=== PATIENT | female | born 1950 | race Caucasian/White ===

== ENCOUNTER 2016-09-22 21:10 | Emergency (ER) | payer MEDICARE ==
[2016-09-22] MEDS ORDERED: ONDANSETRON HCL 4 MG/2 ML VIAL ONE (21:33)
[2016-09-22] MEDS ORDERED: HALOPERIDOL 5 MG/ML VIAL ONE (21:35)
[2016-09-22] MEDS ORDERED: LORazepam 2 MG/ML INJ ONE (21:36)
--- NOTE | 2016-09-22 22:10 | ER PHYSICIAN DOCUMENTATION ---
Physician Documentation [facility] Name:Coco Banuelos Age:66 yrs Sex:Female :1950 Arrival Date:09/22/2016 Time:21:10 BedTrauma-C Private MD:Jason Smith ED, Tom Disposition: 09/22 21:53 Chart complete. tl1 Disposition: 09/22/16 21:52 Transfer ordered to [facility]. Diagnosis is Dizziness - Vertigo. - Reason for transfer: Higher level of care. - Accepting physician is ILA DEGROOT. - Condition is Fair. - Problem is new. - Symptoms are unchanged. COBRA Form completed? Yes Transfer - Mode of Transportation Ambulance HPI: 21:34 This 66 yrs old Female presents to ER via Wheelchair with complaints of tl1 Dizziness/SPINNING. 21:34 The patient presents with sense of spinning, vertigo. Onset: The symptom(s)/episode tl1 began/occurred suddenly, just prior to arrival, 60 minute(s) ago. The patient has not recently seen a physician. 21:34 Earlier today, she had 2 brief episodes, several hours apart, of the abrupt onset of tl1 spinning and nausea. About 30 minutes ago she developed the abrupt onset of severe spinning, nausea and vomiting, worse with any movement. She denies h/a, speech problems, diplopia, fever. She denies focal weakness, gait problems.. Historical: - Allergies: No known drug Allergies; - Home Meds: 1. None - PMHx: None; - PSHx: Hysterectomy; - Tetanus: < 10 years. - Ebola Screening: : No symptoms or risks identified at this time. . - Immunization history: Pneumococcal vaccine status is unknown. - Social history: Smoking status: Patient states was never smoker of tobacco. ROS: 21:35 Neuro: Positive for dizziness, Negative for altered mental status, headache, hearing tl1 loss, loss of consciousness, seizure activity, speech changes, syncope, near syncope, visual changes, weakness. 21:35 All other systems are negative. Exam: 21:36 Constitutional: The patient appears alert, awake, well developed, well hydrated, well tl1 groomed, well nourished, in obvious distress, uncomfortable. 21:36 Head/face: Exam is negative for acute changes. 21:36 Eyes: Pupils: equal, round, and reactive to light and accomodation, Extraocular movements: gaze deviation towards the , Nystagmus: nystagmus with fast component noted, bilaterally. 21:36 ENT: External ear(s): are unremarkable, Mouth: is normal. tl1 21:36 Neck: ROM/movement: is normal, is supple. 21:36 Cardiovascular: Rate: normal, Rhythm: regular, Heart sounds: normal, Edema: is not appreciated, JVD: is not appreciated. 21:36 Respiratory: Respirations: normal, Breath sounds: are normal. 21:36 Abdomen/GI: Palpation: abdomen is soft and non-tender. 21:36 Neuro: Orientation: is normal, Mentation: is normal, Memory: is normal, Cranial nerves: CN I not tested, normal except Bilateral nystagmus. She cannot look much past the midline to the left or right. She has what appears to be rotatory nystagmus when she looks straight ahead., no gross hearing deficit,. 21:36 Neuro: Cerebellar function: normal finger to nose testing. tl1 Vital Signs: 21:11 BP 147 / 78 (auto/); lpr 21:11 Pulse 69 MON; Resp 14; Pulse Ox 94% ; lpr 21:14 BP 147 / 78; Pulse 76; Resp 18; Temp 97.4; Pulse Ox 95% on R/A; Weight 61.23 kg; Height em1 5 ft. 4 in. (162.56 cm); Pain 0/10; 22:06 BP 135 / 68; Pulse 64 MON; Resp 17; Pulse Ox 91% ; lpr 21:14 Body Mass Index 23.17 (61.23 kg, 162.56 cm) em1 MDM: 21:34 Patient medically screened. tl1 21:53 Differential diagnosis: CVA, TIA, vertigo. Data reviewed: vital signs, nurses notes, tl1 and as a result, I will *Transfer Patient. Counseling: I had a detailed discussion with the patient and/or guardian regarding: the historical points, exam findings, and any diagnostic results supporting the discharge/admit diagnosis, the need to transfer to another facility. Medication response: The patient's symptoms have improved, HALDOL AND ATIVAN. Response to treatment: the patient's symptoms have mildly improved after treatment, and as a result, I will TRANSFER. Special discussion: I AM WORRIED ABOUT A BRAINSTEM STROKE AND SHE NEEDS AN MRI KIP. WE CANNOT GET ONE HERE AND SHE NEEDS TO GO TO [facility]. Dispensed Medications: : Drug: Haldol 2.5 mg; Route: IVP; Site: left antecubital; lpr 22:01 Follow up: Response: vomiting subsided lpr : Drug: Ativan 1 mg; Route: IVP; Site: left antecubital; lpr 22:02 Follow up: dizziness subsided. Patient sleeping lpr Signatures: Brandie Almonte RN RN lpr Sanket Strauss MD MD tl1
--- NOTE | 2016-09-22 22:10 | ER NURSING DOCUMENTATION ---
Nurse's Notes [facility] Name:Coco Banuelos Age:66 yrs Sex:Female :1950 Arrival Date:09/22/2016 Time:21:10 BedTrauma-C Private MD:Jason Smith Diagnosis:Dizziness - Vertigo Presentation: 09/22 21:12 Acuity: NILDA 2 rh 21:14 Presenting complaint: Patient states: two bouts of dizziness earlier today that lpr resolved immediately. Dizzy spell after dinner tonight with vomiting. Dizziness now lessened. NO HEADACHE. NO PAIN. No chest pain or SOB. Transition of care: patient was not received from another setting of care. Notified ED Physician of patient's arrival and CC Dr. Strauss notified. 21:14 Method Of Arrival: Wheelchair lpr Triage Assessment: 22:04 General: Appears uncomfortable, Behavior is cooperative. lpr Historical: - Allergies: No known drug Allergies; - Home Meds: 1. None - PMHx: None; - PSHx: Hysterectomy; - Tetanus: < 10 years. - Ebola Screening: : No symptoms or risks identified at this time. . - Immunization history: Pneumococcal vaccine status is unknown. - Social history: Smoking status: Patient states was never smoker of tobacco. Screenin:27 Infectious Disease Risk None. Abuse screen: Denies threats or abuse. Nutritional lpr screening: No deficits noted. Assessment: 21:14 Neuro: Level of Consciousness is awake, alert, obeys commands, Oriented to person, lpr place, time, event, Bonding Supervisor are equal bilaterally Moves all extremities. Speech is normal, Facial symmetry appears normal, Pupils are PERRLA, Reports dizziness, photophobia Denies headache diplopia. 21:18 See Triage Assessment done by same RN. Pain: Denies pain. lpr 21:22 GI: Pt is actively vomiting bile. rh Vital Signs: 21:11 BP 147 / 78 (auto/); lpr 21:11 Pulse 69 MON; Resp 14; Pulse Ox 94% ; lpr 21:14 BP 147 / 78; Pulse 76; Resp 18; Temp 97.4; Pulse Ox 95% on R/A; Weight 61.23 kg; Height em1 5 ft. 4 in. (162.56 cm); Pain 0/10; 22:06 BP 135 / 68; Pulse 64 MON; Resp 17; Pulse Ox 91% ; lpr 21:14 Body Mass Index 23.17 (61.23 kg, 162.56 cm) em1 ED Course: 21:11 Patient arrived in ED. ma1 21:11 Jason Smith MD is Private Physician. ma1 21:12 Triage completed. rh 21:17 Inserted saline lock: 20 gauge in left antecubital area and blood collected. Lee, EMT.lpr 21:[address] Strauss notified and at bedside. lpr 21:28 Valuables Remains with patient Patient has correct armband on for positive lpr identification. Placed in gown. Bed in low position. Call light in reach. Side rails up X2. bus driver/monitor on. Pulse ox on. NIBP on. 21:34 Sanket Strauss MD is Attending Physician. tl1 22:03 Appears to be sleeping. lpr Administered Medications: 21:28 Drug: Haldol 2.5 mg; Route: IVP; Site: left antecubital; lpr 22:01 Follow up: Response: vomiting subsided lpr 21:28 Drug: Ativan 1 mg; Route: IVP; Site: left antecubital; lpr 22:02 Follow up: dizziness subsided. Patient sleeping lpr Intake: Outcome: 21:52 ER care complete, transfer ordered by . tl1 22:03 Transferred: Patient will be transferred to: [facility]. lpr 22:03 Transferred: Facility Acceptance Time: September 22, 2016 at 22:03 Patient's face sheet was faxed to accepting facility. Face Sheet included patient's name, address, age, gender, contact information and insurance information. Patient will be transported by: [facility] ground. Nurse and Physician Charting and Notes were sent to Accepting Facility. All tests and/or procedures with results, if applicable, were sent to accepting facility. 22:03 Condition: stable 22:03 Discharge instructions given to patient, significant other, Instructed on need for transfer Demonstrated understanding of 22:10 Patient left the ED. lpr 22:30 Report given to Cynthia Ratliff RN lpr Signatures: Brandie Almonte RN RN lpr Meinking-tech, Flory-tech em1 Sanket Strauss MD MD tl1 Amira Villegas Angeles Roland ma
== END 2016-09-22 22:10 | disposition short-term general hospital (02) ==
LOC: ER 21:10
DX: R42 Dizziness and giddiness (principal); H55.00 Unspecified nystagmus; R11.2 Nausea with vomiting, unspecified; Z74.3 Need for continuous supervision
CPT/HCPCS: 96374; 96375; 99284; 99285; A0425; A0429; J1630; J2060; J2405

== ENCOUNTER 2016-09-23 16:42 | Observation (INO) | payer MEDICARE ==
[2016-09-23] MEDS ORDERED: HOME MEDICATION LIST NEEDED 1 EA EACH MISC ONE (17:17)
[2016-09-23] MEDS ORDERED: ZOLPIDEM TARTRATE 5 MG TABLET PO PRN (17:19)
[2016-09-23] MEDS ORDERED: MAG-AL PLUS XS SUSP 30 ML UDC PO PRN (17:19)
[2016-09-23] MEDS ORDERED: POLYETHYLENE GLYCOL 3350 17 GM POWD.PACK PO PRN (17:19)
[2016-09-23] MEDS ORDERED: ACETAMINOPHEN 325 MG TABLET PO PRN (17:19)
[2016-09-23] MEDS ORDERED: ENALAPRILAT DIHYDRATE 1.25 MG/ML VIAL IV PRN (17:21)
[2016-09-23] MEDS ORDERED: MECLIZINE HCL 12.5 MG TABLET PO PRN (17:21)
[2016-09-23] MEDS ORDERED: LORazepam 2 MG/ML INJ IV PRN (17:21)
[2016-09-23] MEDS ORDERED: ONDANSETRON ODT 4 MG TAB.RAPDIS PO PRN (17:21)
[2016-09-23] MEDS ORDERED: DEXTROSE 5% NS 1000 ML 1,000 ML IV SCH (18:00)
[2016-09-23] MEDS: METHYLPREDNISOLONE SOD 125 MG/2 ML VIAL IV SCH (18:13)
--- NOTE | 2016-09-24 01:20 | HISTORY & PHYSICAL ---
DATE OF ADMISSION: 09/23/16 REASON FOR ADMISSION: Vertigo with intractable vomiting. HISTORY OF PRESENT ILLNESS: Briefly, the patient is a 66-year-old healthy lady with past medical history of dyslipidemia and eustachian tube dysfunction as well as bilateral presbycusis and osteopenia, who presented to the emergency room last evening for evaluation of vertigo. She states that they had gone for a 6 mile hike [place] and then had been working in the yard. She noted that she had not drank as much water as she should have and then made dinner and had dinner guests. After dinner she had the acute onset of vertigo and vomiting and was subsequently brought to the emergency room and then was transferred to [facility] for further studies. She was cared for by Dr. Ele Escobar, had an MRI/MRA which was reported as normal and she was subsequently discharged on meclizine and Zofran with persistent vomiting and mild dehydration. She had also received Ativan and Haldol in the [facility] Emergency Room and does not recall most of the morning and early afternoon. She presented to the clinic stating that the room was still spinning though not as fast and that she felt sensation that she was still going round. She had no fever, no cough, cold, congestion or URI symptoms. She is unable to stand as she is unsteady on her feet with a tendency to fall toward the right and a risk for a fall related injury. Her presbycusis is unchanged. She has no acute pain in her ears or change in case sensation. She does note some light sensitivity with her eyes but no headache or neck stiffness nor neck pain, and notes the lightheadedness started roughly 2 weeks ago but was short lived and paroxysmal for several minutes and then abated until the episode last evening. PAST MEDICAL HISTORY 1. Dyslipidemia. 2. Eustachian tube dysfunction. 3. Intermittent fatigue and headaches. 4. 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 5. Osteopenia based on DEXA scan. 6. Vitamin D deficiency. PAST SURGICAL HISTORY: Notable for 1. Hysterectomy. 2. Bunionectomy. 3. Local excision of a breast mass that was fibrocystic. ALLERGIES: She is allergic to penicillin. FAMILY HISTORY: Breast cancer in a paternal aunt. Her father from prostate cancer and Alzheimers disease and did have a history of temporal arteritis and her mother has an arrhythmia. SOCIAL HISTORY: She drinks a half glass of wine 2-3 times per week. She is . Has no drug use. Has 2 children. She is trained as a nurse practitioner. Is a life long nonsmoker. CURRENT MEDICATIONS: Include Baby aspirin 1 daily. Calcium carbonate 600 mg plus vitamin D. Additional vitamin D 1000 international units daily. REVIEW OF SYSTEMS: As per HPI. PHYSICAL EXAMINATION VITAL SIGNS: Temperature is 98.2, pulse 78, respiratory rate 16, blood pressure in the 150s/90s, and pulse oximetry 91%. GENERAL: She is pleasant but clearly uncomfortable and declines opening her eyes much during examination as it exacerbates the vertigo. There is no jaundice, anemia, cyanosis, clubbing or lymphadenopathy. NECK: Supple. No masses or bruits. CARDIAC: S1, S2, without murmur. RESPIRATORY: Clear to auscultation. ABDOMEN: Soft, nontender, no masses are appreciated. JUNIOR ENGINEER: Nonfocal. She has pupils equal and reactive to light. Extraocular movements are intact. No nystagmus. TMs show no Norman-Gruber findings within the canals. Cranial nerves are grossly intact. Power and tone as well as DTRs are present and symmetric bilaterally with no abnormal upper motor neuron findings. LABORATORY DATA: Show white count of 6.9, 74% neutrophils, hemoglobin of 16.4 and platelet count of 269. The CMP shows normal sodium and potassium at 140 and 3.8, glucose of 105. This was nonfasting. BUN of 14, creatinine of 0.7. Liver function that is within normal limits. C reactive protein is less than 5. STUDIES: Include MRI/MRA performed at [facility] which were reported as unremarkable. IMPRESSION 1. Vestibular neuronitis. 2. Dehydration on clinical exam. 3. Hypertension. It is reassuring the negative MRI/MRA. Have started Vasotec p.r.n. for systolic hypertension and may restart Lisinopril in the morning. Have also started steroids for vestibular neuronitis, IV fluids for dehydration and meclizine for the vestibular neuronitis as well as Zofran for nausea. Anticipate if symptoms improve overnight to start a steroid burst and taper with prednisone tomorrow morning and then continued use of Ativan and meclizine as needed until the symptoms jacinto. No symptoms of Norman-Gruber findings. The patient is a full code. MTDD
[2016-09-24] MEDS: METHYLPREDNISOLONE SOD 125 MG/2 ML VIAL IV SCH ×3 (02:13→17:33)
[2016-09-24 06:20] LABS: BASOPHILS 0.6 % (0.0-2.0); EOSINOPHILS 0.5 % (0.0-6.0); HEMATOCRIT 43.3 % (36.0-48.0); HEMOGLOBIN 14.7 g/dL (12.0-16.0); LYMPHOCYTES 18.3 % (20.0-40.0); LYMPHOCYTES# 1.2 X 10^3uL (0.8-3.8); MEAN CELL VOLUME 89.1 fL (80.0-100.0); MEAN CORPUS. HGB CONCENTRATION 34.1 g/dL (32.0-36.0); MEAN CORPUSCULAR HEMOGLOBIN 30.4 pg (29.0-35.0); MEAN PLATELET VOLUME 8.3 fL (7.4-10.4); MONOCYTES# 0.5 X 10^3uL (0.2-1.0); NEUTROPHILS 72.6 % (54.0-75.0); NEUTROPHILS# 4.9 X 10^3uL (2.6-6.7); PLATELET COUNT 267 X 10^3uL (130-440); RED BLOOD COUNT 4.86 X 10^6uL (4.20-6.10); RED CELL DISTRIBUTION WIDTH 12.4 % (11.5-14.5); WHITE BLOOD COUNT 6.6 X 10^3uL (3.9-10.7)
[2016-09-24 06:34] LABS: ALBUMIN 3.6 g/dL (3.5-5.0); ALKALINE PHOSPHATASE 43 U/L (38-126); ALT 36 U/L (9-52); AST 19 U/L (14-36); BILIRUBIN, TOTAL 0.8 mg/dL (0.2-1.3); BLOOD UREA NITROGEN 10 mg/dL (7-17); CALCIUM 8.8 mg/dL (8.4-10.2); CHLORIDE 111 mmol/L (98-107); EST GLOMERULAR FILTRATION RATE > 60 mL/min; GLUCOSE 145 mg/dL (70-100); POTASSIUM 3.8 mmol/L (3.5-5.1); SODIUM 139 mmol/L (137-145); TOTAL PROTEIN 6.5 g/dL (6.3-8.2)
--- NOTE | 2016-09-24 08:27 | PROGRESS NOTE: IM APSO ---
Assessment and Plan - Date of Encounter Date of Encounter: 09/24/16 (1) Vestibular neuronitis Status: Acute Assessment and plan: improved some with fluids and steroids, still gait instability, negative MRI/MRA , will continue with steroids for now, likely switch to PO tomorrow and likely DC tomorrow if continues to improve, sespect course to last several weeks Current Visit: Yes (2) Gait instability Status: Acute Assessment and plan: dizzyness persists though some improved, working with PT and taking steroids without issue Current Visit: Yes (3) Dehydration Status: Acute Assessment and plan: improved, heplock IV and encourage PO Current Visit: Yes (4) Nausea Status: Acute Assessment and plan: improved Current Visit: Yes - Time Spent With Patient Total time spent with greater than 50% in coordination of care (as documented) at patient's floor/unit and/or counseling patient: IM: PN Subjective General: fatigue, good appetite (improving though still only liquids (coffee/ jello)), no anxiety, no depression, no confusion HEENT: no headache Cardiovascular: no chest pain, no chest pressure Respiratory: no cough Gastrointestinal: no abdominal pain, no nausea Musculoskeletal: no pain Neurological: no headache, no numbness IM: PN Objective Exam - I&O/Vital Signs I&O: Intake & Output 09/23/16 09/24/16 09/24/16 21:59 05:59 13:59 Intake Total 0 1250 Balance 0 1250 Weight 62 kg 61.5 kg Intake: IV 0 1250 Right Antecubital 0 1250 Vital Signs: Last Vital Signs Temp 36.4 C 09/24/16 06:46 Pulse 72 09/24/16 06:46 Resp 16 09/24/16 06:46 BP 129/76 09/24/16 06:46 Pulse Ox 95 09/24/16 06:46 Oxygen Delivery Method Room Air - Constitutional General appearance: Present: average body habitus - Head Head exam: Present: atraumatic - Eye Eye exam: Present: EOMI, PERRL - ENT ENT exam: Present: mucous membranes moist - Neck Neck exam: Absent: meningismus - Respiratory Respiratory exam: Present: CTAB - Cardiovascular Cardiovascular exam: Present: RRR - GI/Abdominal GI/Abdominal exam: Present: normal bowel sounds, soft. Absent: tenderness - Neurological Exam Neurological exam: Present: abnormal gait (PT present and will ambulate further but list to right, self corrects, is fall risk) - Lab Labs: Laboratory Last Values WBC 6.6 X 10^3uL (3.9-10.7) 09/24/16 06:00 RBC 4.86 X 10^6uL (4.20-6.10) 09/24/16 06:00 Hgb 14.7 g/dL (12.0-16.0) 09/24/16 06:00 Hct 43.3 % (36.0-48.0) 09/24/16 06:00 MCV 89.1 fL (80.0-100.0) 09/24/16 06:00 MCH 30.4 pg (29.0-35.0) 09/24/16 06:00 MCHC 34.1 g/dL (32.0-36.0) 09/24/16 06:00 RDW 12.4 % (11.5-14.5) 09/24/16 06:00 Plt Count 267 X 10^3uL (130-440) 09/24/16 06:00 MPV 8.3 fL (7.4-10.4) 09/24/16 06:00 Neutrophils % 72.6 % (54.0-75.0) 09/24/16 06:00 Lymphocytes % 18.3 % (20.0-40.0) L 09/24/16 06:00 Eosinophils % 0.5 % (0.0-6.0) 09/24/16 06:00 Basophils % 0.6 % (0.0-2.0) 09/24/16 06:00 Neutrophils # 4.9 X 10^3uL (2.6-6.7) 09/24/16 06:00 Lymphocytes # 1.2 X 10^3uL (0.8-3.8) 09/24/16 06:00 Monocytes 8.0 % (2.0-10.0) 09/24/16 06:00 Monocytes # 0.5 X 10^3uL (0.2-1.0) 09/24/16 06:00 Eosinophils # 0.0 X 10^3uL (0.0-0.4) 09/24/16 06:00 Basophils # 0.0 X 10^3uL (0.0-0.1) 09/24/16 06:00 Sodium 139 mmol/L (137-145) 09/24/16 06:00 Potassium 3.8 mmol/L (3.5-5.1) 09/24/16 06:00 Chloride 111 mmol/L (98-107) H 09/24/16 06:00 Carbon Dioxide 22 mmol/L (22-30) 09/24/16 06:00 BUN 10 mg/dL (7-17) 09/24/16 06:00 Creatinine 0.6 mg/dL (0.5-1.0) 09/24/16 06:00 GFR Calculation > 60 mL/min 09/24/16 06:00 Glucose 145 mg/dL (70-100) H 09/24/16 06:00 Calcium 8.8 mg/dL (8.4-10.2) 09/24/16 06:00 Total Bilirubin 0.8 mg/dL (0.2-1.3) 09/24/16 06:00 Direct Bilirubin 0.0 mg/dL (0.0-0.4) 09/24/16 06:00 AST 19 U/L (14-36) 09/24/16 06:00 ALT 36 U/L (9-52) 09/24/16 06:00 Alkaline Phosphatase 43 U/L (38-126) 09/24/16 06:00 Total Protein 6.5 g/dL (6.3-8.2) 09/24/16 06:00 Albumin 3.6 g/dL (3.5-5.0) D 09/24/16 06:00 Quality Questions - VTE Prophylaxis Assessment VTE Present on Admission?: No Patient at risk for venous thromboembolism?: Yes VTE Risk Level: Low Risk Pharmaceutical VTE prophylaxis contraindication reason: not indicated Mechanical VTE prophylaxis contraindication reason: not indicated
[2016-09-24] MEDS: VALACYCLOVIR 500 MG TABLET PO SCH ×2 (09:03→20:27)
[2016-09-24 23:34] VITALS: TEMP 98.1; O2SAT 95
[2016-09-25] MEDS: METHYLPREDNISOLONE SOD 125 MG/2 ML VIAL IV SCH (02:32)
[2016-09-25 06:49] VITALS: BP 143/80; PULSE 68; RESP 18
[2016-09-25] MEDS ORDERED: predniSONE 10 MG TABLET PO SCH (07:00)
--- NOTE | 2016-09-25 08:56 | PROGRESS NOTE: IM APSO ---
Assessment and Plan - Date of Encounter Date of Encounter: 09/25/16 (1) Vestibular neuronitis Status: Acute Assessment and plan: improved some with fluids and steroids, still gait instability, negative MRI/MRA , will continue with steroids for now, switching to PO, likely neuronitis wiht hearing loss and acute exacerbation, labrynthitis with allergic symptoms and possible bppv as did exacerbate with position change (otoliths) Current Visit: Yes (2) Gait instability Status: Acute Assessment and plan: dizzyness persists though some improved, working with PT and taking steroids without issue Current Visit: Yes (3) Dehydration Status: Acute Assessment and plan: resolved Current Visit: Yes (4) Nausea Status: Acute Assessment and plan: improved Current Visit: Yes (5) Hypertension Status: Acute Assessment and plan: paroxysmal but with kathya >160's even at rest, may be exacerbated by steroids, she will check bid and is willing to resume low dose lisinopril Current Visit: Yes - Time Spent With Patient Total time spent with greater than 50% in coordination of care (as documented) at patient's floor/unit and/or counseling patient: IM: PN Subjective General: fatigue (better, up today and showered, ready to go home, some dizzyness with looking to right but kows won't be driving, will f/u [facility] PT fo vestibular work and will limit work in gym for now. Has no throw rugs, has walk in shower and shower chair, walker aleady and hiking sticks to graduate to. BP up intermittently, will start lisinopril and monitor.), good appetite ( tolerating diet), no anxiety, no depression, no confusion HEENT: no headache Cardiovascular: no chest pain, no chest pressure Respiratory: no cough Gastrointestinal: no abdominal pain, no nausea Musculoskeletal: no pain Neurological: no headache, no numbness IM: PN Objective Exam - I&O/Vital Signs I&O: Intake & Output 09/24/16 09/25/16 09/25/16 21:59 05:59 13:59 Intake Total 937 600 Output Total 1650 2375 Balance -387 -2605 Intake: Oral 937 600 Output: Urine 1650 2375 Other: Urine Appearance Clear Clear Urine Color Pale Pale Voiding Method Toilet Toilet # Voids 5 Vital Signs: Last Vital Signs Temp 36.7 C 09/25/16 06:48 Pulse 68 09/25/16 06:48 Resp 18 09/25/16 06:48 BP 143/80 09/25/16 06:48 Pulse Ox 95 09/25/16 06:48 Oxygen Delivery Method Room Air - Constitutional General appearance: Present: average body habitus - Head Head exam: Present: atraumatic - Eye Eye exam: Present: other (reviewed with Holley from PT and note nystagmus and saccads improved) - Allied Health Notes Allied health notes reviewed: nursing, PT - Lab Labs: Laboratory Last Values WBC 6.6 X 10^3uL (3.9-10.7) 09/24/16 06:00 RBC 4.86 X 10^6uL (4.20-6.10) 09/24/16 06:00 Hgb 14.7 g/dL (12.0-16.0) 09/24/16 06:00 Hct 43.3 % (36.0-48.0) 09/24/16 06:00 MCV 89.1 fL (80.0-100.0) 09/24/16 06:00 MCH 30.4 pg (29.0-35.0) 09/24/16 06:00 MCHC 34.1 g/dL (32.0-36.0) 09/24/16 06:00 RDW 12.4 % (11.5-14.5) 09/24/16 06:00 Plt Count 267 X 10^3uL (130-440) 09/24/16 06:00 MPV 8.3 fL (7.4-10.4) 09/24/16 06:00 Neutrophils % 72.6 % (54.0-75.0) 09/24/16 06:00 Lymphocytes % 18.3 % (20.0-40.0) L 09/24/16 06:00 Eosinophils % 0.5 % (0.0-6.0) 09/24/16 06:00 Basophils % 0.6 % (0.0-2.0) 09/24/16 06:00 Neutrophils # 4.9 X 10^3uL (2.6-6.7) 09/24/16 06:00 Lymphocytes # 1.2 X 10^3uL (0.8-3.8) 09/24/16 06:00 Monocytes 8.0 % (2.0-10.0) 09/24/16 06:00 Monocytes # 0.5 X 10^3uL (0.2-1.0) 09/24/16 06:00 Eosinophils # 0.0 X 10^3uL (0.0-0.4) 09/24/16 06:00 Basophils # 0.0 X 10^3uL (0.0-0.1) 09/24/16 06:00 Sodium 139 mmol/L (137-145) 09/24/16 06:00 Potassium 3.8 mmol/L (3.5-5.1) 09/24/16 06:00 Chloride 111 mmol/L (98-107) H 09/24/16 06:00 Carbon Dioxide 22 mmol/L (22-30) 09/24/16 06:00 BUN 10 mg/dL (7-17) 09/24/16 06:00 Creatinine 0.6 mg/dL (0.5-1.0) 09/24/16 06:00 GFR Calculation > 60 mL/min 09/24/16 06:00 Glucose 145 mg/dL (70-100) H 09/24/16 06:00 Calcium 8.8 mg/dL (8.4-10.2) 09/24/16 06:00 Total Bilirubin 0.8 mg/dL (0.2-1.3) 09/24/16 06:00 Direct Bilirubin 0.0 mg/dL (0.0-0.4) 09/24/16 06:00 AST 19 U/L (14-36) 09/24/16 06:00 ALT 36 U/L (9-52) 09/24/16 06:00 Alkaline Phosphatase 43 U/L (38-126) 09/24/16 06:00 Total Protein 6.5 g/dL (6.3-8.2) 09/24/16 06:00 Albumin 3.6 g/dL (3.5-5.0) D 09/24/16 06:00
[2016-09-25] MEDS ORDERED: LISINOPRIL 5 MG TABLET PO SCH (09:00)
--- NOTE | 2016-09-25 09:05 | DC SUMMARY: IM Note ---
Discharge Summary: IM/Peds Provider: Date of Admission: 09/23/16 Admitting Provider: GUILLERMINA NORMAN Attending Provider: GUILLERMINA NORMAN Discharging Provider: GUILLERMINA NORMAN Primary Care Provider: Discharge Date: 09/25/16 - Diagnosis (1) Vestibular neuronitis Status: Acute (2) Gait instability Status: Acute (3) Dehydration Status: Acute (4) Nausea Status: Acute (5) Hypertension Status: Acute - Time Spent with Patient Total time spent providing and/or coordinating discharge services: Discharge - Patient/Caregiver Discharge Instructions Activity Level: as tolerated with use of walker and shower seat for stability for now, please do not drive until symptoms jacinto and I would limit gym workout until seen by PT in clinic and felt safe Diet: cardiac prudent (low fat no added salt) Follow up: GUILLERMINA NORMAN MD [Primary Care Provider] - 2 Weeks Overall discharge status: patient is progressing back to baseline Home Medications: Lisinopril [Prinivil*] 2.5 mg PO DAILY #30 tab Meclizine HCl [Antivert*] 12.5 mg PO Q6H PRN #30 tab PRN Reason: Vertigo Ondansetron Odt [Zofran Odt*] 4 mg PO Q6H PRN #15 tab PRN Reason: Nausea/Vomiting, Use 1st predniSONE [Deltasone*] 10 mg PO BID #60 tab Valacyclovir [Valtrex*] 1,000 mg PO BID #12 tab Zolpidem Tartrate [Ambien*] 5 mg PO HS PRN #15 tab PRN Reason: Insomnia Orders: Outpatient Physical Therapy Eval & Treat Location: Determined By Patient Disposition: HOME, SELF-CARE Discharge Summary Data - Medication History Medication History: Home Medications Calcium 600 + Vit D Tablet 600 mg PO BID 09/24/16 aspirin EC [Aspirin EC*] 81 mg PO DAILY 09/24/16 Inpatient Medications 09/23/16 17:19 Acetaminophen [Tylenol] 650 mg PO Q6H PRN Mag-Al Plus Xs Susp [Maalox Liquid] 30 ml PO Q4H PRN Polyethylene Glycol 3350 [miraLAX] 17 gm PO BID PRN Zolpidem Tartrate [Ambien] 5 mg PO HS PRN 09/23/16 17:21 Enalaprilat Dihydrate [Vasotec] 0.625 mg IV Q6H PRN LORazepam [Ativan] 1 mg IV Q6H PRN Meclizine HCl [Antivert] 12.5 mg PO Q6H PRN Ondansetron Odt [Zofran Odt] 4 mg PO Q6H PRN 09/23/16 18:00 Methylprednisolone Sod [Solu-Medrol] 60 mg IV Q8H 09/24/16 09:00 Valacyclovir [Valtrex] 1,000 mg PO BID aspirin CHEW [Baby Aspirin Chewable] 81 mg PO DAILY 09/25/16 09:00 Lisinopril [Prinivil] 2.5 mg PO DAILY predniSONE [Deltasone] 30 mg PO BID Procedures and tests throughout hospitalization: Completed Lab Orders 09/24/16 06:00 BASIC METABOLIC PANEL [CHEM] AMDRAW CBC AUTO DIF, MDIF/RMOR IF IND [HEM] AMDRAW HEPATIC PANEL [CHEM] AMDRAW Pending Orders 09/23/16 17:17 Admit: Observation Routine Activity: Ambulate with Assist TID Intake and Output QSHIFT I&O Neurological Checks Q4HX6 Obtain weight 0600 Resuscitation Status Routine Titrate Oxygen TITRATE TO >90% Vital Signs ROUTINE VITALS (Q4H) Nursing Information Systems Coordinator Consult [CM] Routine 09/23/16 17:19 Advance diet as tolerated . Acetaminophen [Tylenol] 650 mg PO Q6H PRN Mag-Al Plus Xs Susp [Maalox Liquid] 30 ml PO Q4H PRN Polyethylene Glycol 3350 [miraLAX] 17 gm PO BID PRN Zolpidem Tartrate [Ambien] 5 mg PO HS PRN 09/23/16 17:21 Enalaprilat Dihydrate [Vasotec] 0.625 mg IV Q6H PRN LORazepam [Ativan] 1 mg IV Q6H PRN Meclizine HCl [Antivert] 12.5 mg PO Q6H PRN Ondansetron Odt [Zofran Odt] 4 mg PO Q6H PRN 09/23/16 18:00 Methylprednisolone Sod [Solu-Medrol] 60 mg IV Q8H 09/24/16 09:00 Valacyclovir [Valtrex] 1,000 mg PO BID aspirin CHEW [Baby Aspirin Chewable] 81 mg PO DAILY 09/24/16 16:22 Physical Therapy Plan of Care [PT] Routine 09/24/16 Breakfast reg [Regular] [DIET] 09/24/16 Lunch reg [Regular] [DIET] 09/25/16 09:00 Lisinopril [Prinivil] 2.5 mg PO DAILY predniSONE [Deltasone] 30 mg PO BID IM: Discharge Physical Exam - I&O/Vital Signs I&O: Intake & Output 09/24/16 09/25/16 09/25/16 21:59 05:59 13:59 Intake Total 937 600 Output Total 1650 2375 Balance -395 -4774 Intake: Oral 937 600 Output: Urine 1650 2375 Other: Urine Appearance Clear Clear Urine Color Pale Pale Voiding Method Toilet Toilet # Voids 5 Vital Signs: Last Vital Signs Temp 36.7 C 09/25/16 06:48 Pulse 68 09/25/16 06:48 Resp 18 09/25/16 06:48 BP 143/80 09/25/16 06:48 Pulse Ox 95 09/25/16 06:48 Oxygen Delivery Method Room Air - Constitutional General appearance: Present: average body habitus - Head Head exam: Present: atraumatic - Eye Eye exam: Present: other (reviewed with Holley from PT and note nystagmus and saccads improved) - ENT ENT exam: Present: mucous membranes moist - Neck Neck exam: Absent: meningismus - Respiratory Respiratory exam: Present: CTAB - Cardiovascular Cardiovascular exam: Present: RRR - GI/Abdominal GI/Abdominal exam: Present: normal bowel sounds, soft. Absent: tenderness - Neurological Exam Neurological exam: Present: abnormal gait (PT present and will ambulate further but list to right, self corrects, is fall risk) - Allied Health Notes Allied health notes reviewed: nursing, PT
[2016-09-25] MEDS: VALACYCLOVIR 500 MG TABLET PO SCH (09:25)
== END 2016-09-25 09:13 | disposition home or self-care (01) ==
LOC: IN 17:14
PROVIDERS: ADMIT Hospitalist; ATTEND Hospitalist
DX: H81.23 Vestibular neuronitis, bilateral (principal); R26.0 Ataxic gait; E86.0 Dehydration; R11.0 Nausea; I10 Essential (primary) hypertension; E78.5 Hyperlipidemia, unspecified; H69.93 Unspecified Eustachian tube disorder, bilateral; M85.89 Other specified disorders of bone density and structure, multiple sites; E55.9 Vitamin D deficiency, unspecified; Z79.899 Other long term (current) drug therapy
CPT/HCPCS: 36415; 80048; 80053; 80076; 85025; 86140; 93041; 96366; 96374; 96375; 96376; 99000; 99217; 99220; 99226; G0378; G0379; G8979; G8980; G8981; G8982; J2060; J2930; J7042; J7512